=== PATIENT | male | born 1990 | race Two or more races ===

== ENCOUNTER 2019-02-19 09:44 | Emergency (ER) | payer OTHER ==
[~2019-02-19] VITALS: Ht 195.6 cm; Wt 104.3 kg
[2019-02-19] MEDS ORDERED: HYDROMORPHONE INJ 2 MG/ML DISP.SYRIN IV ONE (10:00)
[2019-02-19] MEDS ORDERED: LIDOCAINE 2% 20 ML MDV ONE (10:00)
[2019-02-19] MEDS ORDERED: LIDOCAINE 2% 20 ML MDV TP ONE (10:00)
[2019-02-19] MEDS ORDERED: IV NS 0.9% 1,000 ML BAG IV ONE (10:00)
[2019-02-19] MEDS ORDERED: TDAP [DIPH/PERTUSSIS/TET] 0.5 ML VIAL IM ONE ×2 (10:00→10:01)
[2019-02-19] MEDS ORDERED: ONDANSETRON HCL/PF 4 MG/2 ML VIAL IVP ONE (10:00)
[2019-02-19] MEDS ORDERED: CEFAZOLIN 1 GM in IV D5W 50 ML IV ONE (10:00)
--- NOTE | 2019-02-19 10:00 | NUR ---
PT CAME IN TO THE ED C/O LEFT LEG LAC S/P HEAVY PLASTIC SHEET FELL ON HIS LEFT LEG, 10/10 PS. PT AAOX4, BREATHING UNLABORED ON ROOMAIR, AND PLACED ON A MONITOR. MD AT BEDSIDE.
[2019-02-19] MEDS ORDERED: HYDROMORPHONE 1 MG/1 ML DISP.SYRIN ONE (10:01)
[2019-02-19] MEDS ORDERED: ONDANSETRON HCL/PF 4 MG/2 ML VIAL ONE (10:01)
[2019-02-19 10:12] LABS: BASOPHILS % (AUTO) 1.2 % (0.0-2.0); EOSINOPHILS % (AUTO) 0.9 % (0.0-6.0); HEMATOCRIT 45 % (39-51); HEMOGLOBIN 15.6 g/dL (13.5-17.5); LYMPHOCYTES # (AUTO) 1.4 /CMM (0.8-4.8); MEAN CORPUSCULAR HGB CONC 35 g/dl (31.0-36.0); MEAN CORPUSCULAR VOLUME 95 fL (80-96); MONOCYTES # (AUTO) 0.3 /CMM (0.1-1.30); MONOCYTES % (AUTO) 9.3 % (2.0-12.0); NEUTROPHILS # (AUTO) 1.6 /CMM (1.8-8.9); NEUTROPHILS % (AUTO) 46.6 % (43.0-81.0); PLATELET COUNT (AUTO) 170 /CMM (150-450); RED BLOOD CELL COUNT(AUTO) 4.74 MIL/uL (4.5-6.0); WHITE BLOOD COUNT (AUTO) 3.4 K/uL (4.3-11.0)
[2019-02-19 10:19] LABS: CALCIUM, SERUM 8.9 mg/dL (8.5-10.1); CREATININE 1.1 mg/dL (0.6-1.3)
[2019-02-19 11:24] VITALS: BP 131/76
--- NOTE | 2019-02-19 11:25 | NUR ---
18G LAC IV removed. Catheter intact and site benign. Pressure and 4x4 applied to site. No bleeding noted.Patient discharged to home in stable condition. Written and verbal after care instructions given. Patient verbalizes understanding of instruction.
== END 2019-02-19 11:28 | disposition home or self-care (01) ==
LOC: ER 09:44
DX: S81.812A Laceration without foreign body, left lower leg, initial encounter (principal); W20.8XXA Other cause of strike by thrown, projected or falling object, initial encounter; Y93.89 Activity, other specified; Y92.89 Other specified places as the place of occurrence of the external cause; Y99.8 Other external cause status
CPT/HCPCS: 12006; 36415; 73590; 80048; 85025; 90471; 90715; 96365; 96375; 99284; A6403 ×2; J0690; J1170; J2405; J3490; J7060

== ENCOUNTER 2019-03-03 12:28 | Emergency (ER) | payer OTHER ==
[~2019-03-03] VITALS: Ht 185.4 cm; Wt 86.6 kg
[2019-03-03 12:42] VITALS: BP 134/81
== END 2019-03-03 13:28 | disposition home or self-care (01) ==
LOC: ER 12:31
DX: S81.812D Laceration without foreign body, left lower leg, subsequent encounter (principal); X58.XXXD Exposure to other specified factors, subsequent encounter
CPT/HCPCS: A6403